=== PATIENT | female | born 1980 ===

== ENCOUNTER 2018-04-08 07:47 | Emergency (ER) | payer OTHER ==
[2018-04-08 07:47] VITALS: BMI 20.5
[2018-04-08 08:03] VITALS: RESP 18; O2SAT 100
[2018-04-08] MEDS ORDERED: DiphenhydrAMINE 50 mg/ml Inj IVP STA (08:26)
[2018-04-08 08:43] LABS: BASO # 0.1 K/uL (0.0-0.2); BASO % 0.6 % (0.0-2.0); EOS # 0.1 K/uL (0.0-0.7); EOS % 0.7 % (0.0-4.0); HEMOGLOBIN 12.5 g/dL (11.0-16.0); LYMPH % 10.8 % (20.0-40.0); MEAN CELL VOLUME 93.6 fL (81.0-99.0); MEAN CORPUSCULAR HGB CONC 34.2 g/dL (33.0-37.0); MEAN PLATELET VOLUME 7.8 fL (7.2-11.7); MONO # 0.6 K/uL (0.0-0.8); MONO % 6.5 % (0.0-10.0); NEUT # 7.5 K/uL (1.8-7.0); NEUT % 81.4 % (50.0-75.0); RBC 3.92 Mil/uL (3.80-5.20); RED CELL DISTRIBUTION WIDTH 14.8 % (11.5-14.5); WHITE BLOOD COUNT 9.2 K/uL (4.8-10.8)
[2018-04-08] MEDS ORDERED: DiphenhydrAMINE 50 mg/ml Inj ONE (08:48)
[2018-04-08 08:56] LABS: ALB/GLOB RATIO 1.6 (1.0-2.1); ALBUMIN 4.3 g/dL (3.5-5.0); CALCIUM 9.2 mg/dl (8.6-10.4)
--- NOTE | 2018-04-08 09:02 | C.PDOC ---
History Of Present Illness 38 y/o female presents to ED with c/o headache since 11pm last night associated with nausea, vomiting and light sensitivity. Patient denies history of headache or migraine. Patient reports she saw Dr. Richardson in the office yesterday and was started on Losartan. Patient denies CP, SOB, slurred speech, facial droop, extremity weakness, sensory changes, visual changes, fever, dizziness. PMHx - HTN, CKD Time Seen by Provider: 04/08/18 07:53 Chief Complaint (Nursing): Headache History Per: Patient History/Exam Limitations: no limitations Onset/Duration Of Symptoms: Hrs Current Symptoms Are (Timing): Still Present Severity: Moderate Quality: "Pain" Associated Symptoms: Photophobia, Nausea, Vomiting. denies: Blurred Vision, Extremity Weakness Past Medical History Reviewed: Historical Data, Nursing Documentation, Vital Signs Vital Signs: Last Vital Signs Temp 98.8 F 04/08/18 11:16 Pulse 73 04/08/18 11:16 Resp 18 04/08/18 11:16 BP 170/97 H 04/08/18 11:16 Pulse Ox 100 04/08/18 11:39 - Medical History PMH: HTN Surgical History: No Surg Hx - [facility] Procedures ESOPHAGOGASTRODUODENOSCOPY [EGD] W/CLOSED BIOPSY (05/18/15) PACKED CELL TRANSFUSION (05/18/15) PERCUTAN NEEDLE BIOPSY OF KIDNEY (05/18/15) Family History: States: No Known Family Hx - Social History Hx Alcohol Use: No Hx Substance Use: No - Immunization History Hx Tetanus Toxoid Vaccination: No Hx Influenza Vaccination: No Hx Pneumococcal Vaccination: No Review Of Systems Constitutional: Negative for: Fever, Chills Eyes: Negative for: Vision Change Cardiovascular: Negative for: Chest Pain, Palpitations Respiratory: Negative for: Cough, Shortness of Breath Gastrointestinal: Positive for: Nausea, Vomiting. Negative for: Abdominal Pain , Diarrhea Genitourinary: Negative for: Dysuria, Hematuria Neurological: Positive for: Headache. Negative for: Weakness, Numbness, Change in Speech, Confusion, Seizures, Altered Mental Status, Dizziness Physical Exam - Physical Exam Appears: Well, Non-toxic, Other (In moderate pain, tearful) Skin: Warm, Dry, No Rash Head: Atraumatic, Normacephalic Eye(s): bilateral: Normal Inspection (no nystagmus), PERRL, EOMI Oral Mucosa: Moist Neck: Normal, Normal ROM, No Midline Cervical Tenderness, No Paracervical Tenderness, No Step Off Deformity, Supple Cardiovascular: Rhythm Regular Respiratory: Normal Breath Sounds, No Rales, No Rhonchi, No Wheezing Gastrointestinal/Abdominal: Normal Exam, Bowel Sounds, Soft, No Tenderness Extremity: Normal ROM, No Pedal Edema, No Calf Tenderness Neurological/Psych: Oriented x3, Normal Speech, Normal Cognition, Normal Cranial Nerves, No Cerebellar Signs, Normal Motor, Normal Sensation Gait: Steady ED Course And Treatment - Laboratory Results Result Diagrams: 04/08/18 08:38 04/08/18 08:38 O2 Sat by Pulse Oximetry: 100 (RA) Pulse Ox Interpretation: Normal - CT Scan/US CT HEAD Other Rad Studies (CT/US): Read By Radiologist, Radiology Report Reviewed CT/US Interpretation: Accession No. : [id number]. Patient Name / ID : [place] / [id number]. Exam Date : 04/08/2018 09:01:44 ( Approved ). Study Comment : Sex / Age : F / 38Y. Creator : Juan Garay. Dictator : Aster Kuo MD. Cam Milling Machine Operator : Technical Maintenance Specialist : Aster Kuo MD. Approver2 : Report Date : 04/08/2018 09:02:30. My Comment : . Date of service: 04/08/2018. PROCEDURE: CT HEAD WITHOUT CONTRAST. HISTORY : Severe headache. COMPARISON: None available. TECHNIQUE: Axial computed tomography images were obtained through the head/brain without intravenous contrast. Radiation dose: Total exam DLP = 809.32 mGy-cm. This CT exam was performed using one or more of the following dose reduction techniques: Automated exposure control, adjustment of the mA and/or kV according to patient size, and/or use of iterative reconstruction technique. FINDINGS: HEMORRHAGE: No intracranial hemorrhage. BRAIN: Jenkins-white matter differentiation is preserved. There is a 10 x 12 mm CSF density lesion in the right temporal lobe in the expected location of the choroidal fissure. There is no mass effect or abnormal extra-axial fluid collection. There is no territorial infarction. The midline sagittal structures are normal. VENTRICLES: The ventricles are normal in size, shape and configuration. CALVARIUM: The skull base and calvarium are normal. PARANASAL SINUSES: Predominantly clear. MASTOID AIR CELLS: Predominantly clear. OTHER FINDINGS: None. IMPRESSION: No acute intracranial abnormality. 10 x 12 mm presumable right choroidal plexus cyst, a benign intracranial cyst, incidental finding. Progress Note: Blood work, Upreg POC, CT head ordered and reviewed. Patient given IV NS bolus, IV Reglan, and IV Benadryl. 11:50 - On reassessment, patient is resting comfortably and states her headache has resolved and she feels better. Patient made aware of CT head findings, and instructed to follow up with neurosurgery within 1 week if symptoms persist. Rx for Fiorecet given. Patient understands he should return to ED if symptoms worsen. Reevaluation Time: 10:35 Reassessment Condition: Improved (Patient reassessed, still c/o headache and nausea - IV morphine, IV zofran ordered.) Disposition Counseled Patient/Family Regarding: Studies Performed, Diagnosis, Need For Followup, Rx Given - Disposition Referrals: Aidan Richardson MD [Staff Provider] - Guero Marcus MD [Staff Provider] - Disposition: HOME/ ROUTINE Disposition Time: 11:50 Condition: STABLE Additional Instructions: FOLLOW UP WITH YOUR DOCTOR IN 1-2 DAYS USE MEDICATION NEEDED RETURN TO EMERGENCY ROOM IF SYMPTOMS WORSEN SEGUIMIENTO CON FISHER MDICO EN 1-2 MCCABE USE MEDICAMENTOS SEGN SEA NECESARIO REGRESE AL REYNA DE EMERGENCIA SI LOS SNTOMAS EMPEORAN Prescriptions: Acetaminophen/Butalbital/Caf [Fioricet] 1 tab PO TID PRN #20 tab PRN Reason: Headache Instructions: Headache, Adult (DC) Forms: [facility] (Omani), Work Excuse Print Language: SLOVENIAN - Clinical Impression Clinical Impression: Headache, Choroid cyst - Scribe Statement The provider has reviewed the documentation as recorded by the [employer] [place] All medical record entries made by the Scribe were at my direction and personally dictated by me. I have reviewed the chart and agree that the record accurately reflects my personal performance of the history, physical exam, medical decision making, and the department course for this patient. I have also personally directed, reviewed, and agree with the discharge instructions and disposition.
--- NOTE | 2018-04-08 09:21 | CT ---
Date of service: 04/08/2018 PROCEDURE: CT HEAD WITHOUT CONTRAST. HISTORY: Severe headache COMPARISON: None available. TECHNIQUE: Axial computed tomography images were obtained through the head/brain without intravenous contrast. Radiation dose: Total exam DLP = 809.32 mGy-cm. This CT exam was performed using one or more of the following dose reduction techniques: Automated exposure control, adjustment of the mA and/or kV according to patient size, and/or use of iterative reconstruction technique. FINDINGS: HEMORRHAGE: No intracranial hemorrhage. BRAIN: Jenkins-white matter differentiation is preserved. There is a 10 x 12 mm CSF density lesion in the right temporal lobe in the expected location of the choroidal fissure. There is no mass effect or abnormal extra-axial fluid collection. There is no territorial infarction. The midline sagittal structures are normal. VENTRICLES: The ventricles are normal in size, shape and configuration. CALVARIUM: The skull base and calvarium are normal. PARANASAL SINUSES: Predominantly clear. MASTOID AIR CELLS: Predominantly clear. OTHER FINDINGS: None. IMPRESSION: No acute intracranial abnormality. 10 x 12 mm presumable right choroidal plexus cyst, a benign intracranial cyst, incidental finding.
[2018-04-08] MEDS ORDERED: Morphine 4 MG/ML VIAL ONE (10:52)
[2018-04-08 11:32] VITALS: BP 170/97; PULSE 73; TEMP 98.8
== END 2018-04-08 11:50 | disposition home or self-care (01) ==
LOC: C.ER 07:47
DX: G93.0 Cerebral cysts (principal); R51 Headache
CPT/HCPCS: 70450; 80053; 85025; 96374; 96375; 99285; J1200; J2270; J2405; J2765

== ENCOUNTER 2018-09-25 10:48 | Outpatient (CLI) | payer OTHER | END 2018-09-25 10:49 | disposition home or self-care (01) | LOC: C.LAB 10:48 | DX: N18.4 Chronic kidney disease, stage 4 (severe) (principal); I10 Essential (primary) hypertension ==

== ENCOUNTER 2018-12-04 10:41 | Emergency (ER) | payer OTHER ==
[2018-12-04 10:41] VITALS: BMI 20.5
[2018-12-04 11:04] VITALS: O2SAT 100
--- NOTE | 2018-12-04 11:26 | C.PDOC ---
History Of Present Illness 38 year old female PMHx of renal disease, renal failure (no dialysis) and hypertension presents for evaluation of sudden pain with inspiration and orthopnea that started today in the morning. The patient reports the pain started after she woke up. Denies recent diagnosis of pneumonia, fever, chills, nausea, vomiting, and any other associated symptoms. Time Seen by Provider: 12/04/18 11:03 Chief Complaint (Nursing): Chest Pain History Per: Patient History/Exam Limitations: no limitations Onset/Duration Of Symptoms: Hrs Current Symptoms Are (Timing): Still Present Recent travel outside of the [place]: No Past Medical History Reviewed: Historical Data, Nursing Documentation, Vital Signs Vital Signs: Last Vital Signs Temp 99.0 F 12/04/18 10:57 Pulse 106 H 12/04/18 10:57 Resp 18 12/04/18 10:57 BP 135/90 12/04/18 10:57 Pulse Ox 100 12/04/18 10:57 - Medical History PMH: HTN, Chronic Kidney Disease - [facility] Procedures ESOPHAGOGASTRODUODENOSCOPY [EGD] W/CLOSED BIOPSY (05/18/15) PACKED CELL TRANSFUSION (05/18/15) PERCUTAN NEEDLE BIOPSY OF KIDNEY (05/18/15) Family History: States: Unknown Family Hx - Social History Hx Alcohol Use: No Hx Substance Use: No - Immunization History Hx Tetanus Toxoid Vaccination: No Hx Influenza Vaccination: No Hx Pneumococcal Vaccination: No Review Of Systems Except As Marked, All Systems Reviewed And Found Negative. Constitutional: Negative for: Fever, Chills Respiratory: Positive for: Other ((+) pain with inspiration. (+) orthopnea.) Gastrointestinal: Negative for: Nausea, Vomiting Physical Exam - Physical Exam Appears: Non-toxic, No Acute Distress Skin: Warm, Dry Head: Atraumatic, Normacephalic Eye(s): bilateral: Normal Inspection, Other (conjunctiva normal. ) Oral Mucosa: Moist Neck: Normal ROM, Supple Chest: Symmetrical, No Deformity Cardiovascular: Rhythm Regular, No Murmur Respiratory: Decreased Breath Sounds (quiet. ), No Rales, No Rhonchi, No Wheezi ng, No Other (crackles. ) Gastrointestinal/Abdominal: Soft, Tenderness (epigastric. ), No Distention, No Guarding, No Hernia Extremity: Bilateral: Atraumatic, Normal Color And Temperature, Normal ROM, Other ((-) edema. ) Neurological/Psych: Oriented x3, Normal Speech, Normal Cognition, Other (speaking full sentences. ) ED Course And Treatment - Laboratory Results Result Diagrams: 12/04/18 11:31 12/04/18 11:31 O2 Sat by Pulse Oximetry: 100 (RA) Pulse Ox Interpretation: Normal - Other Rad CXR X-Ray: Viewed By Me, Read By Radiologist Interpretation: FINDINGS: LUNGS: No active pulmonary disease. PLEURA: No significant pleural effusion identified. No pneumothorax apparent. CARDIOVASCULAR: No aortic atherosclerotic calcification present. Normal cardiac size. No pulmonary vascular congestion. OSSEOUS STRUCTURES: No significant abnormalities. VISUALIZED UPPER ABDOMEN: Normal. OTHER FINDINGS: None. IMPRESSION: No active disease. ABD Xray X-Ray: Viewed By Me, Read By Radiologist Interpretation: FINDINGS: BOWEL: Normal. No obstruction. No free air. BONES: Normal. OTHER FINDINGS: None. IMPRESSION: No active disease. Medical Decision Making Medical Decision Making: Initial plan: -Blood sent. -D Dimer -CXR -Obstructive -Urinalysis Progress/Update: Musculoskeletal chest pain, normal chest XRay, Tamadol helped, but made the patient nauseous. Zofran given. Pt stable for discharge home. Prescribed Ultram and Zofran. Advised to return if symptoms worsen. Disposition - Disposition Referrals: Aidan Richardson MD [Staff Provider] - Disposition: HOME/ ROUTINE Disposition Time: 14:38 Condition: STABLE Prescriptions: Ondansetron ODT [Zofran ODT] 4 mg PO TID #12 odt traMADol [Ultram] 50 mg PO TID #12 tab Instructions: Costochondritis (DC) Forms: Gen Discharge Inst Indian, [facility] (Indian) - POA Present On Arrival: None - Clinical Impression Clinical Impression: Costochondral chest pain - Scribe Statement The provider has reviewed the documentation as recorded by the Scribe (Mckenzie Treadwell) Provider Attestation: All medical record entries made by the Scribe were at my direction and personally dictated by me. I have reviewed the chart and agree that the record accurately reflects my personal performance of the history, physical exam, medical decision making, and the department course for this patient. I have also personally directed, reviewed, and agree with the discharge instructions and disposition.
[2018-12-04 11:34] LABS: BASO % 0.5 % (0.0-2.0); EOS # 0.1 K/uL (0.0-0.7); EOS % 0.8 % (0.0-4.0); HEMOGLOBIN 11.1 g/dL (11.0-16.0); LYMPH # 0.8 K/uL (1.0-4.3); LYMPH % 9.8 % (20.0-40.0); MEAN CELL VOLUME 98.2 fL (81.0-99.0); MEAN CORPUSCULAR HEMOGLOBIN 33.3 pg (27.0-31.0); MEAN CORPUSCULAR HGB CONC 33.9 g/dL (33.0-37.0); MEAN PLATELET VOLUME 7.4 fL (7.2-11.7); MONO # 0.5 K/uL (0.0-0.8); MONO % 6.5 % (0.0-10.0); NEUT # 6.9 K/uL (1.8-7.0); NEUT % 82.4 % (50.0-75.0); PLATELET COUNT 236 K/uL (130-400); RBC 3.33 Mil/uL (3.80-5.20); RED CELL DISTRIBUTION WIDTH 16.2 % (11.5-14.5); WHITE BLOOD COUNT 8.4 K/uL (4.8-10.8)
[2018-12-04 11:46] LABS: ALB/GLOB RATIO 1.6 (1.0-2.1); ALBUMIN 4.3 g/dL (3.5-5.0); ALT/SGPT 13 U/L (9-52); AST/SGOT 15 U/L (14-36); BLOOD UREA NITROGEN 44 mg/dL (7-17); CALCIUM 10.1 mg/dl (8.6-10.4); GFR NON-AFRICAN AMERICAN 23
[2018-12-04 11:58] LABS: B-TYPE NATRIURETIC PEPTIDE 107 pg/mL (0-450)
[2018-12-04 12:01] LABS: SQUAMOUS EPITHIAL 2 /hpf (0-5); URINE BACTERIA RARE (<OCC); URINE BILIRUBIN NEGATIVE (NEGATIVE); URINE BLOOD 2+ (NEGATIVE); URINE CLARITY Clear (Clear); URINE COLOR Yellow (YELLOW); URINE GLUCOSE (UA) NORMAL (Normal); URINE LEUKOCYTE ESTERASE NEG Leu/uL (Negative); URINE PROTEIN NEGATIVE (NEGATIVE); URINE UROBILINOGEN NORMAL mg/dL (0.2-1.0)
[2018-12-04 12:21] LABS: BANDS 1 % (0-2); EOSINOPHIL 1 % (0-4); LYMPHOCYTE 11 % (20-40); MONOCYTE 6 % (0-10); NEUTROPHIL 80 % (50-75); PLATELET ESTIMATE NORMAL (NORMAL); REACTIVE LYMPHOCYTES 1 % (0-0); TOTAL CELLS COUNTED 100
[2018-12-04 12:22] LABS: ANISOCYTOSIS SLIGHT; TOXIC GRANULATION PRESENT
[2018-12-04 12:23] LABS: POLYCHROMIC SLIGHT
--- NOTE | 2018-12-04 13:12 | RAD ---
Date of service: 12/04/2018 HISTORY: abd pain COMPARISON: None available. TECHNIQUE: 1 view obtained. FINDINGS: BOWEL: Normal. No obstruction. No free air. BONES: Normal. OTHER FINDINGS: None. IMPRESSION: No active disease.
--- NOTE | 2018-12-04 13:15 | RAD ---
Date of service: 12/04/2018 HISTORY: abd pain COMPARISON: 05/04/2018 TECHNIQUE: Chest PA and lateral views FINDINGS: LUNGS: No active pulmonary disease. PLEURA: No significant pleural effusion identified. No pneumothorax apparent. CARDIOVASCULAR: No aortic atherosclerotic calcification present. Normal cardiac size. No pulmonary vascular congestion. OSSEOUS STRUCTURES: No significant abnormalities. VISUALIZED UPPER ABDOMEN: Normal. OTHER FINDINGS: None. IMPRESSION: No active disease.
[2018-12-04] MEDS ORDERED: Aluminum Hydroxide/Magnesium Hydroxide Susp (30 mL) PO STA (13:40)
[2018-12-04] MEDS ORDERED: Aluminum Hydroxide/Magnesium Hydroxide Susp (30 mL) ONE (14:00)
[2018-12-04 14:56] VITALS: BP 130/80; PULSE 84; RESP 20; TEMP 98
--- NOTE | 2018-12-07 01:35 | CARD ---
APPROVED REPORT Date of service: 12/04/2018 EKG Measurement Heart [id number] <Conclusion> Sinus tachycardia T wave abnormality, consider inferior ischemia Abnormal ECG
== END 2018-12-04 14:57 | disposition home or self-care (01) ==
LOC: C.ER 10:41
DX: R07.89 Other chest pain (principal)
CPT/HCPCS: 71046; 74019; 80053; 81001; 83880; 84484; 85025; 85378; 93005; 96374; 96375; 99283; J2405

== ENCOUNTER 2018-12-07 08:23 | Outpatient (CLI) | payer OTHER | END 2018-12-07 08:24 | disposition home or self-care (01) | LOC: C.LAB 08:23 | DX: N18.4 Chronic kidney disease, stage 4 (severe) (principal) ==

== ENCOUNTER 2018-12-17 07:46 | Outpatient (CLI) | payer OTHER | END 2018-12-17 07:47 | disposition home or self-care (01) | LOC: C.LAB 07:46 | DX: Z00.00 Encounter for general adult medical examination without abnormal findings (principal) ==

== ENCOUNTER 2019-01-01 14:58 | Outpatient (CLI) | payer OTHER | END 2019-01-01 14:59 | disposition home or self-care (01) | LOC: C.USIC 14:58 | DX: N18.4 Chronic kidney disease, stage 4 (severe) (principal); R80.9 Proteinuria, unspecified ==